=== PATIENT | female | born 1995 | race Caucasian/White ===

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

== ENCOUNTER 2017-01-09 21:32 | Emergency (ER) | payer BC ==
[2017-01-09] MEDS ORDERED: ACETAMINOPHEN TAB 325 MG TAB PO STA (23:48)
--- NOTE | 2017-01-09 23:51 | ED ---
General Adult HPI - General Chief complaint: Chest Pain Stated complaint: Diff breathing Time Seen by Provider: 01/09/17 23:31 Source: patient, RN notes reviewed Mode of arrival: ambulatory Limitations: no limitations - History of Present Illness Initial comments: Patient is a 21-year-old female presents to the emergency room for evaluation of chest pain. patient states she began developing sharp midsternal pain earlier this afternoon that would not subside. Patient states pain is worse when she takes a deep breath or presses over her chest. Patient does state she has a history of a bleeding ulcer. Patient denies vomiting. Patient denies lightheadedness or dizziness. Patient denies smoking, drinking or illicit drug use. Patient denies fevers or chills. Patient denies cough. Patient denies taking anything for her pain. Patient states pain is an 8 out of 10. - Related Data Home Medications Medication Instructions Recorded Confirmed Albuterol Inhaler [Ventolin Hfa 2 puff INHALATION RT-QID PRN 02/27/14 10/16/16 Inhaler] DULoxetine HCL [Cymbalta] 90 mg PO HS 07/16/16 10/15/16 Norethindrone-Ethinyl Estrad 1 tab PO HS 10/09/16 10/15/16 [Alyacen 1-35-28 Tablet] Previous Rx's Medication Instructions Recorded Ondansetron Odt [Zofran ODT] 4 mg PO Q8HR PRN #20 tab 10/09/16 Pantoprazole Sodium [Protonix] 40 mg PO BID #28 tablet. 10/16/16 Sucralfate [Carafate] 1 gm PO QID #600 ml 10/16/16 Allergies Allergy/AdvReac Type Severity Reaction Status Date / Time amoxicillin [Amoxicillin] Allergy Rash/Hives Verified 01/09/17 21:40 Penicillins Allergy Rash/Hives Verified 01/09/17 21:40 Review of Systems ROS Statement: Those systems with pertinent positive or pertinent negative responses have been documented in the HPI. ROS Other: All systems not noted in ROS Statement are negative. Past Medical History Past Medical History: Asthma, GERD/Reflux Additional Past Medical History / Comment(s): RECENT EPISODES OF VOMITING UP BLOOD AND ABD. PAIN, esophageal tear, hiatal hernia, bleeding ulcers History of Any Multi-Drug Resistant Organisms: None Reported Past Surgical History: No Surgical Hx Reported Additional Past Surgical History / Comment(s): WISDOM TEETH PULLED UNDER ANESTHESIA, EGD Past Anesthesia/Blood Transfusion Reactions: No Reported Reaction Past Psychological History: Anxiety, Depression Smoking Status: Never smoker Past Alcohol Use History: None Reported Past Drug Use History: None Reported - Past Family History Mother Family Medical History: No Reported History General Exam - General Exam Comments Initial Comments: laying in exam room, no acute distress. Limitations: no limitations General appearance: alert, in no apparent distress Head exam: Present: atraumatic, normocephalic, normal inspection Eye exam: Present: normal appearance ENT exam: Present: normal exam Neck exam: Present: normal inspection Respiratory exam: Present: normal lung sounds bilaterally, chest wall tenderness (reproducible midsternal tenderness on palpation). Absent: respiratory distress Cardiovascular Exam: Present: regular rate, normal rhythm, normal heart sounds GI/Abdominal exam: Present: soft, normal bowel sounds. Absent: distended, tenderness, guarding, rebound, rigid Extremities exam: Present: normal inspection Back exam: Present: normal inspection Neurological exam: Present: alert, oriented X3, CN II-XII intact, normal gait Psychiatric exam: Present: normal affect, normal mood Skin exam: Present: warm, dry, intact, normal color. Absent: rash Course Vital Signs 01/09/17 01/10/17 21:35 02:36 Temperature 99.1 F 98.7 F Pulse Rate 99 80 Respiratory 18 16 Rate Blood Pressure 129/72 120/61 O2 Sat by Pulse 98 99 Oximetry EKG Findings - EKG Comments: EKG Findings:: Normal sinus rhythm, ventricular rate 73 bpm, NM interval 128 ms , QRS duration 82 ms, QT/QTC 376/414 ms Medical Decision Making - Medical Decision Making Patient is a 21-year-old female presents emergency room for evaluation of chest pain. Patient states pain is worse was takes deep breath. Patient states pain is worse when she presses over the area. Chest x-ray showed no acute findings. Patient's d-dimer was extremely elevated. Patient does admit that she is on control. CT angio shows no signs of PE. Patient's symptoms could be related to costochondritis. Advised patient to take Tylenol as needed. Patient does state she is feeling better after given Tylenol. Advised patient to follow-up with primary care provider for reevaluation. Patient states she understands everything that was discussed with her. Return parameters discussed. Case discussed with Dr. Foley. - Lab Data Lab Results 01/10/17 01/10/17 01/10/17 Range/Units 01:10 02:25 02:25 D-Dimer 6.79 H (<0.60) mg/L FEU Urine Color Dark Yellow Urine Appearance Cloudy H (Clear) Urine pH 6.0 (5.0-8.0) Ur Specific Corrigan 1.030 (1.001-1.035) Urine Protein 1+ H (Negative) Urine Glucose (UA) Negative (Negative) Urine Ketones 1+ H (Negative) Urine Blood Negative (Negative) Urine Nitrite Negative (Negative) Urine Bilirubin 1+ H (Negative) Urine Urobilinogen 4.0 (<2.0) mg/dL Ur Leukocyte Esterase Large H (Negative) Urine RBC 6 H (0-5) /hpf Urine WBC 6 H (0-5) /hpf Ur Squamous Epith Cells 1 (0-4) /hpf Urine Mucus Many H (None) /hpf Urine HCG, Qual Not Detected (Not Detectd) - Radiology Data Radiology results: report reviewed, image reviewed Disposition Clinical Impression: Costochondritis Disposition: HOME SELF-CARE Condition: Good Instructions: Costochondritis (ED) Additional Instructions: Take Tylenol as needed for pain. Please follow up with primary care provider in 1-2 days. Refrain from heavy lifting or strenuous physical activity. If any new symptom arises or symptoms worsen, return to ER as soon as possible. Referrals: Kimmie Seth DO [Primary Care Provider] - 1-2 days Time of Disposition: 03:39
--- NOTE | 2017-01-10 00:49 | XR ---
EXAM: XR Chest, 2 Views CLINICAL HISTORY: Reason: Pain TECHNIQUE: Frontal and lateral views of the chest. COMPARISON: No relevant prior studies available. FINDINGS: Lungs: Unremarkable. No consolidation. Pleural space: Unremarkable. No pneumothorax. Heart: Unremarkable. No cardiomegaly. Mediastinum: Unremarkable. Bones/joints: Unremarkable. Soft tissues: Of incidental note are bilateral nipple piercings. IMPRESSION: No definite acute intrathoracic abnormality is seen.
[2017-01-10] MEDS ORDERED: RX INFO: IV CONTRAST WAS GIVEN 1 EACH MISC MISCELLANE PRN (02:22)
[2017-01-10 02:37] VITALS: RESP 16
[2017-01-10 02:40] LABS: Appearance,Urine Cloudy (Clear); Bilirubin,Urine 1+ (Negative); Glucose,Urine (UA) Negative (Negative); Ketones,Urine 1+ (Negative); Leukocyte Esterase,Urine Large (Negative); Mucus,Urine Many /hpf; Nitrite,Urine Negative (Negative); Particle Count 42077; Protein,Urine 1+ (Negative); RBC,Urine 6 /hpf (0-5); Squamous Epithelial Cell,Urine 1 /hpf (0-4); UA Billing (MACRO vs. MICRO) MICRO; WBC,Urine 6 /hpf (0-5)
--- NOTE | 2017-01-10 03:39 | CT ---
EXAM: CT Angiography Chest With Intravenous Contrast CLINICAL HISTORY: Reason: Pain TECHNIQUE: Axial computed tomographic angiography images of the chest with intravenous contrast using pulmonary embolism protocol. CTDI is 44.10 mGy and DLP is 199.90 mGy-cm. This CT exam was performed using one or more of the following dose reduction techniques: automated exposure control, adjustment of the mA and/or kV according to patient size, and/or use of iterative reconstruction technique. MIP reconstructed images were created and reviewed. COMPARISON: Earlier two-view chest of the same evening. FINDINGS: Pulmonary arteries: Unremarkable. No pulmonary embolism. Aorta: No acute findings. No thoracic aortic aneurysm. Lungs: Unremarkable. No mass. No consolidation. Pleural space: Unremarkable. No significant effusion. No pneumothorax. Heart: Unremarkable. No cardiomegaly. No significant pericardial effusion. No evidence of RV dysfunction. Bones/joints: No acute fracture. No dislocation. Minimal rightward curvature of the thoracic spine is seen. Soft tissues: Bilateral nipple piercings are again noted. Lymph nodes: Unremarkable. No enlarged lymph nodes. IMPRESSION: No evidence of pulmonary embolism or acute process seen within the chest.
[2017-01-10 04:32] VITALS: BP 117/56; PULSE 75; TEMP 97.6
== END 2017-01-10 04:14 | disposition home or self-care (01) ==
LOC: EC 21:32
DX: M94.0 Chondrocostal junction syndrome [Tietze] (principal); R79.1 Abnormal coagulation profile; F32.9 Major depressive disorder, single episode, unspecified; F41.9 Anxiety disorder, unspecified; Z79.3 Long term (current) use of hormonal contraceptives; Z79.899 Other long term (current) drug therapy; Z88.1 Allergy status to other antibiotic agents
CPT/HCPCS: 36415; 93005; 85379; 81001; 81025; 71020; 71275; 99285; Q9967

== ENCOUNTER → 2017-08-19 | Outpatient (CLI) | payer BC ==
[2017-08-19 11:50] LABS: Appearance,Urine Cloudy (Clear); Bilirubin,Urine Negative (Negative); Blood,Urine Negative (Negative); Color,Urine Yellow; Glucose,Urine (UA) Negative (Negative); Ketones,Urine Negative (Negative); Leukocyte Esterase,Urine Negative (Negative); Mucus,Urine Many /hpf; Nitrite,Urine Negative (Negative); PH, Urine 7.5 (5.0-8.0); Protein,Urine 1+ (Negative); Specific Gravity,Urine 1.022 (1.001-1.035); Squamous Epithelial Cell,Urine 9 /hpf (0-4); Urobilinogen,Urine <2.0 mg/dL (<2.0); WBC,Urine 1 /hpf (0-5)
--- NOTE | 2017-08-19 11:59 | XR ---
EXAMINATION TYPE: XR shoulder complete LT DATE OF EXAM: 08/19/2017 COMPARISON: Chest x-ray 01/10/2017 HISTORY: Pain TECHNIQUE: Three views are submitted. FINDINGS: The osseous structures are intact. There is no acute fracture or dislocation. The AC joint is maint ained. Alignment of the clavicle and acromion is stable dating back to 01/10/2017 chest x-ray. IMPRESSION: 1. No acute process. If symptoms persist consider MRI.
[2017-08-19 12:01] LABS: ALT 25 U/L (9-52); AST 20 U/L (14-36); Albumin 4.2 g/dL (3.5-5.0); Alkaline Phosphatase 61 U/L (38-126); Anion Gap 12 mmol/L; Blood Urea Nitrogen 10 mg/dL (7-17); Calcium 9.7 mg/dL (8.4-10.2); Carbon Dioxide 23 mmol/L (22-30); Chloride 105 mmol/L (98-107); Cholesterol 208 mg/dL (<200); Glucose 88 mg/dL (74-99); HDL Cholesterol 63 mg/dL (40-60); LDL Cholesterol,Calculated 116 mg/dL (0-99); Potassium 4.2 mmol/L (3.5-5.1); Sodium 140 mmol/L (137-145); Total Bilirubin 0.8 mg/dL (0.2-1.3); Total Protein 7.4 g/dL (6.3-8.2); Triglycerides 144 mg/dL (<150)
[2017-08-20 14:53] LABS: C. trachomatis,PCR Negative (Neg,Equiv); Chlamydia trachomatis Source Urine; N. gonorrhoeae,PCR Negative (Neg,Equiv); Neisseria Source Urine
== END | disposition home or self-care (01) ==
LOC: LABWHC1 11:03
PROVIDERS: ATTEND Nurse Practitioner Family
DX: Z00.01 Encounter for general adult medical examination with abnormal findings (principal); S49.90XA Unspecified injury of shoulder and upper arm, unspecified arm, initial encounter
CPT/HCPCS: 36415; 80053; 80061; 81001; 87491; 87591